=== PATIENT | male | born 1965 | race Caucasian/White ===

== ENCOUNTER 2018-01-04 08:20 | Day surgery (SDC) | payer OTHER ==
[~2018-01-04 08:20] MED LIST: BUPIVACAINE 0.25%/EPI (MDV) 50 ML VIAL INJ; CEFAZOLIN 1 GM INJ; CEFAZOLIN 2 GM/50 ML (PMX) 50 ML IVPB; ESMOLOL 100 MG INJ; ROCURONIUM 50 MG INJ; SOD CHLORIDE 0.9% 1,000 ML IV
[2018-01-04 09:09] LABS: ADD MAN DIFF? NO
[2018-01-04 09:16] LABS: WHITE BLOOD COUNT 7.1 10^3/ul (4.8-10.8)
[2018-01-04 09:16] LABS: BASOPHILS % 0.3 % (0.0-2.0); EOSINOPHILS # 0.1 10^3/ul (0.0-0.5); EOSINOPHILS % 1.8 % (0.0-7.0); HEMOGLOBIN 15.8 g/dl (14.0-18.0); LYMPHOCYTES # 2.5 10^3/ul (0.8-2.9); LYMPHOCYTES % 35.1 % (15.0-51.0); MEAN CORPUSCULAR HEMOGLOBIN 30.7 pg (29.0-33.0); MEAN CORPUSCULAR HGB CONC 35.1 g/dl (32.0-37.0); MEAN CORPUSCULAR VOLUME 87.5 fl (82.0-101.0); MEAN PLATELET VOLUME 11.3 fl (7.4-10.4); MONOCYTE # 0.4 10^3/ul (0.3-0.9); MONOCYTES % 5.9 % (0.0-11.0); NEUTROPHILS % 56.8 % (39.0-77.0); PLATELET COUNT 254 10^3/UL (140-415); RED BLOOD COUNT 5.14 10^6/ul (4.70-6.10); RED CELL DISTRIBUTION WIDTH 11.9 % (11.5-14.5)
[2018-01-04 09:31] LABS: INR 0.92; PROTIME 12.4 Sec (11.9-14.9)
[2018-01-04 09:32] LABS: PARTIAL THROMBOPLASTIN TIME 32.1 Sec (25.0-35.0)
[2018-01-04] MEDS ORDERED: MIDAZOLAM 1 MG/ML 2 ML INJ (09:33)
[2018-01-04] MEDS ORDERED: PROPOFOL 40 ML (09:33)
[2018-01-04] MEDS ORDERED: ROCURONIUM 50 MG INJ (09:33)
[2018-01-04] MEDS ORDERED: SUCCINYLCHOLINE CHLORIDE 100 MG/5 ML SYG IV (09:33)
[2018-01-04 09:36] LABS: ALANINE AMINOTRANSFERASE 59 IU/L (13-69); ALBUMIN/GLOBULIN RATIO 1.53; ALKALINE PHOSPHATASE 60 IU/L (42-121); ANION GAP 13 (8-16); ASPARTATE AMINO TRANSFERASE 23 IU/L (15-46); BILIRUBIN,INDIRECT 0.1 mg/dl (0-1.1); BILIRUBIN,TOTAL 0.1 mg/dl (0.2-1.3); CARBON DIOXIDE 25 mmol/L (21-31); CHLORIDE 112 mmol/L (97-110); GLUCOSE 106 mg/dl (70-220); TOTAL PROTEIN 6.6 g/dl (6.1-8.1)
[2018-01-04 09:43] LABS: BLOOD UREA NITROGEN 12 mg/dl (7-20); CREATININE 0.69 mg/dl (0.61-1.24); POTASSIUM 4.2 mmol/L (3.5-5.1); SODIUM 146 mmol/L (135-144)
[2018-01-04] MEDS: NEOMYC/POLYMYX/BACIT 30 GM OINT (10:48)
[2018-01-04] MEDS: BUPIVACAINE 0.5% (SDV) 30 ML INJ (10:48)
[2018-01-04] MEDS ORDERED: ONDANSETRON 4 MG INJ (10:51)
[2018-01-04] MEDS ORDERED: KETOROLAC 30 MG INJ (10:51)
[2018-01-04] MEDS ORDERED: DEXAMETHASONE 4 MG/ML 1 ML INJ (10:51)
[2018-01-04] MEDS ORDERED: METOCLOPRAMIDE 10 MG INJ (10:51)
[2018-01-04] MEDS ORDERED: EPHEDrine SULFATE 50 MG/5 ML SYG (10:52)
[2018-01-04] MEDS ORDERED: ACETAMINOPHEN 1000MG/100ML IV 100 ML (10:52)
[2018-01-04] MEDS ORDERED: SUGAMMADEX SODIUM 200 MG/2 ML VIAL IV (10:53)
[2018-01-04] MEDS ORDERED: DIPHENHYDRAMINE 50 MG INJ IV (11:30)
[2018-01-04] MEDS ORDERED: OXYCODONE/ACETAMINOPHEN (5/325) TAB PO ×2 (11:30)
[2018-01-04] MEDS ORDERED: HYDROmorphONE (0.2 MG/ML) 10ML SYG IV ×3 (11:30)
[2018-01-04] MEDS ORDERED: ONDANSETRON 4 MG INJ IV (11:30)
[2018-01-04] MEDS ORDERED: MEPERIDINE 25 MG INJ IV (11:30)
[2018-01-04] MEDS ORDERED: LABETALOL HCL 20MG INJ IV (11:30)
[2018-01-04] MEDS ORDERED: METOCLOPRAMIDE 10 MG INJ IV (11:30)
[2018-01-04] MEDS ORDERED: FENTAnyl 50 MCG/ML VIAL IV ×3 (11:30)
[2018-01-04] MEDS ORDERED: EPHEDrine SULFATE 50 MG/5 ML SYG IV (11:30)
[2018-01-04] MEDS ORDERED: hydrALAzine 20 MG INJ IV (11:30)
== END 2018-01-04 12:23 | disposition home or self-care (01) ==
LOC: SDS 08:20
DX: L05.01 Pilonidal cyst with abscess (principal); E78.5 Hyperlipidemia, unspecified
CPT/HCPCS: 10080; 71045; 80053; 85025; 85610; 85730; 88304; 93005